=== PATIENT | female | born 1945 | race Two or more races ===

== ENCOUNTER 2022-08-29 15:10 | Emergency (ER) | payer MEDICARE, OTHER ==
[~2022-08-29] VITALS: Ht 162.6 cm; Wt 60.0 kg
[~2022-08-29 15:10] MED LIST: ASPI-498 PO; SIMV-8 PO; TEMA30CA PO; TRAM50TA2 PO
[2022-08-29 15:22] VITALS: BP 122/57
== END 2022-08-29 22:01 | disposition left against medical advice (07) ==
LOC: EDBD 15:10 → ER 15:13
DX: M25.572 Pain in left ankle and joints of left foot (principal); R94.31 Abnormal electrocardiogram [ECG] [EKG]; Z53.21 Procedure and treatment not carried out due to patient leaving prior to being seen by health care provider; W10.9XXA Fall (on) (from) unspecified stairs and steps, initial encounter; Y93.89 Activity, other specified; Y92.89 Other specified places as the place of occurrence of the external cause; Y99.8 Other external cause status
CPT/HCPCS: 73610; 93005